=== PATIENT | female | born 1990 | race Caucasian/White ===

== ENCOUNTER 2018-11-12 22:40 | Emergency (ER) | payer OTHER ==
[2018-11-13] MEDS: IBUPROFEN 600 MG TAB PO (02:45)
== END 2018-11-13 04:13 | disposition home or self-care (01) ==
LOC: FTE 22:40
DX: F41.9 Anxiety disorder, unspecified (principal); J02.9 Acute pharyngitis, unspecified; J45.909 Unspecified asthma, uncomplicated
CPT/HCPCS: 81025; 87070; 87880; 99283